=== PATIENT | female | born 1990 | race Caucasian/White ===

== ENCOUNTER 2020-03-21 11:17 | Outpatient (RCR) | payer OTHER, SELFPAY ==
--- NOTE | ~2020-03-21 | US_ITS ---
EXAMINATION: US OB limited, US OB BPP multi gestation EXAM DATE: 03/21/2020 13:03 (accession [id number]), 03/21/2020 13:02 (accession [id number]) INDICATION: Decreased movement/BPP and cervical length. 3rd trimester. TECHNIQUE: Pelvic obstetrical twin gestation transabdominal sonogram was performed by a technologist . There are multiple grayscale and Doppler images available for interpretation. There are no earlie r studies of this gestation for comparison. FINDINGS: The cervical canal measures 4.1 cm. No cervical funneling. There are two living fetuses. FETUS A: Presentation is transverse, more inferiorly located with head to maternal left side and pos terior placenta. cardiac activity and movement are noted. heart rate is 144 beats p er minute (bpm). Biophysical profile performed by the technologist: breathing (30 sec sustained breathing in 30 minutes): 2 out of 2 movement (3 gross body movements in 30 minutes): 2 out of 2 tone (one episode of nrzxxcf-kecadkeba-bggerpt limb movement): 2 out of 2 Amniotic fluid pocket (2 cm): 2 out of 2 Total score: 8 out of 8 FETUS B: Presentation is transverse presentation, head to maternal right side, anteriorly located pl acenta. cardiac activity and movement are noted. heart rate is 135 bpm. Biophysical profile performed by the technologist: breathing (30 sec sustained breathing in 30 minutes): 2 out of 2 movement (3 gross body movements in 30 minutes): 2 out of 2 tone (one episode of hkrfhft-sdhsdxzoo-zhnccbs limb movement): 2 out of 2 Amniotic fluid pocket (2 cm): 2 out of 2 Total score: 8 out of 8 IMPRESSION: 1. Twin fetuses transverse presentations with heart rates of 144 bpm and 135 bpm, respectively. 2. Biophysical profile 8 out of 8 for fetus A and 8 out of 8 for fetus B. 3. Cervical canal length 4.1 cm, no funneling. Reviewed, dictated and finalized at location B. OHISTORIAN IMPRESSION: 1. Twin fetuses transverse presentations with heart rates of 144 bpm and 135 b pm, respectively. 2. Biophysical profile 8 out of 8 for fetus A and 8 out of 8 for fetus B. 3. Cervical canal length 4.1 cm, no funneling.
[2020-03-21 13:22] VITALS: BP 124/78; PULSE 86
[2020-04-21 00:48] LABS: Glucose Point of Care 100 (65-105)
== END 2020-05-16 07:32 | disposition home or self-care (01) ==
LOC: ANHOBOP 11:17
PROVIDERS: PCP Emergency Medicine; Visit Provider Obstetrics & Gynecology
DX: O30.003 Twin pregnancy, unspecified number of placenta and unspecified number of amniotic sacs, third trimester (principal); O36.8132 Decreased fetal movements, third trimester, fetus 2; Z3A.29 29 weeks gestation of pregnancy
CPT/HCPCS: 59025; 76815; 76819; 82948

== ENCOUNTER 2020-04-09 15:31 | Outpatient (CLI) | payer OTHER, SELFPAY ==
[2020-04-09 16:02] VITALS: BP 129/81; PULSE 101
[2020-04-09 16:16] VITALS: BP 116/75; PULSE 88
[2020-04-09 16:26] LABS: Basophils Absolute Auto 0.1 K/mm3 (0.0-0.1); Basophils Percent Auto 0.4 % (0.2-1.2); Eosinophils Absolute Auto 0.2 K/mm3 (0-0.3); Eosinophils Percent Auto 1.1 % (0-4.4); Hematocrit 34.6 % (37.0-47.0); Hemoglobin 11.4 g/dL (12.0-15.0); Immature Granulocyte Percent A 1.5 % (0-0.5); Lymphocytes Absolute Auto 2.09 K/mm3 (0.9-3.2); Lymphocytes Percent Auto 15.5 % (18.3-44.2); Mean Corpuscular HGB Conc 32.9 g/dl (32-36); Mean Corpuscular Hemoglobin 29.5 pg (26-34); Mean Corpuscular Volume 89.4 fl (80-100); Mean Platelet Volume 9.7 fl (7.4-10.4); Monocytes Absolute Auto 1.2 K/mm3 (0.1-0.6); Monocytes Percent Auto 8.5 % (2.6-8.5); Neutrophils Absolute Auto 9.9 K/mm3 (1.3-6.7); Platelet Count Result 216 k/mm3 (150-375); Red Blood Count 3.87 M/mm3 (4.2-5.4); Red Cell Distribution Width 13.6 % (11.5-14.5); White Blood Count 13.5 K/mm3 (4.5-10.0)
[2020-04-09 16:31] VITALS: BP 116/79; PULSE 88
[2020-04-09 16:31] LABS: Add Urine Microscopic? YES; Appearance Urine Clear (Clear); Bacteria Urine Trace /hpf; Bilirubin Urine Negative (Negative); Blood Urine Negative (Negative); Color Urine Yellow (Yellow); Glucose Urine UA Negative (Negative); Ketones Urine Negative (Negative); Leukocyte Esterase Ur Negative LEU/UL (NEGATIVE); Mucus Urine Rare /lpf; Nitrate Urine Negative (Negative); Protein Urine 1+ mg/dL (Negative); RBC Urine 0-2 /hpf (0-2); Specific Grav Ur 1.016 (1.001-1.035); Squamous Epithelial Cell Urine Few /hpf (Few); Urobilinogen Urine Negative mg/dL (<2.0); WBC Urine 0-3 /hpf (0-3)
[2020-04-09 16:35] LABS: Creatinine Urine 90.2 mg/dL; Total Protein Urine Random 17 mg/dL; Ur Ttl Prot Creatinine Ratio 0.19 mg/mg (0-0.20)
[2020-04-09 16:41] LABS: Alanine Aminotransferase 24 U/L (4-35); Albumin Level 3.3 g/dL (3.5-5.1); Alkaline Phosphatase 158 U/L (38-126); Anion Gap 5 mmol/L (8-16); Aspartate Amino Transferase 22 U/L (14-36); Bilirubin,Total 0.3 mg/dL (0.2-1.3); Blood Urea Nitrogen 6 mg/dL (7-17); Calcium 8.9 mg/dL (8.4-10.2); Carbon Dioxide 19 mmol/L (22-30); Chloride 109 mmol/L (98-107); Estimated Glomerular Filt Rate > 60; Glucose 87 mg/dL (65-105); Sodium 133 mmol/L (137-145); Uric Acid 4.7 mg/dL (2.5-7.5)
[2020-04-09 16:45] VITALS: BP 125/80; PULSE 99
--- NOTE | 2020-04-09 16:45 | PC.NURSE ---
pt was sent from maternal medicine due to headache and elevated BP and UTI symptoms. monitor applied and [facility] lab drawn. Called Dr. Goodman with BP, lab result and reactive NST. discharge order received.
[2020-04-09 16:46] VITALS: BP 125/80; PULSE 99
[2020-04-09 16:47] VITALS: BP 125/80; PULSE 99
== END 2020-04-09 16:55 | disposition home or self-care (01) ==
LOC: ANHOBOP 15:34 → ANHOBPP 15:35
PROVIDERS: PCP Emergency Medicine; Referring Provider Obstetrics & Gynecology; Visit Provider Obstetrics & Gynecology
DX: I10 Essential (primary) hypertension (principal)
CPT/HCPCS: 36415; 59025; 80053; 81001; 82570; 84156; 84550; 85025; 87086; 99199

== ENCOUNTER 2020-04-20 23:26 | Outpatient (CLI) | payer OTHER, SELFPAY ==
--- NOTE | 2020-04-20 23:35 | PC.NURSE ---
Pt states she has had decreased movement for past 2 hours and blood pressure per home wrist cuff had diastolic running /110. Twin gestation 33 4/7weeks. Pt also has gestational diabetes.
[2020-04-21 01:56] LABS: Basophils Absolute Auto 0.1 K/mm3 (0.0-0.1); Basophils Percent Auto 0.4 % (0.2-1.2); Eosinophils Absolute Auto 0.2 K/mm3 (0-0.3); Eosinophils Percent Auto 1.4 % (0-4.4); Hematocrit 34.4 % (37.0-47.0); Hemoglobin 11.2 g/dL (12.0-15.0); Immature Granulocyte Absolute 0.21 K/mm3 (0.00-0.031); Immature Granulocyte Percent A 1.5 % (0-0.5); Lymphocytes Absolute Auto 2.37 K/mm3 (0.9-3.2); Lymphocytes Percent Auto 17.1 % (18.3-44.2); Mean Corpuscular HGB Conc 32.6 g/dl (32-36); Mean Corpuscular Hemoglobin 28.9 pg (26-34); Mean Corpuscular Volume 88.7 fl (80-100); Mean Platelet Volume 10.1 fl (7.4-10.4); Monocytes Absolute Auto 1.3 K/mm3 (0.1-0.6); Monocytes Percent Auto 9.2 % (2.6-8.5); Neutrophils Absolute Auto 9.8 K/mm3 (1.3-6.7); Neutrophils Percent Auto 70.4 % (45.5-73.1); Platelet Count Result 227 k/mm3 (150-375); Red Blood Count 3.88 M/mm3 (4.2-5.4); Red Cell Distribution Width 13.8 % (11.5-14.5); White Blood Count 13.9 K/mm3 (4.5-10.0)
[2020-04-21 01:57] LABS: Add Urine Microscopic? NO; Appearance Urine Clear (Clear); Bilirubin Urine Negative (Negative); Blood Urine Negative (Negative); Color Urine Yellow (Yellow); Glucose Urine UA Negative (Negative); Ketones Urine Negative (Negative); Leukocyte Esterase Ur Negative LEU/UL (NEGATIVE); Nitrate Urine Negative (Negative); Protein Urine Negative (Negative); Specific Grav Ur 1.006 (1.001-1.035); Urobilinogen Urine Negative mg/dL (<2.0)
[2020-04-21 02:13] LABS: Alanine Aminotransferase 27 U/L (4-35); Albumin Level 3.5 g/dL (3.5-5.1); Alkaline Phosphatase 194 U/L (38-126); Anion Gap 4 mmol/L (8-16); Aspartate Amino Transferase 28 U/L (14-36); Bilirubin,Total 0.4 mg/dL (0.2-1.3); Blood Urea Nitrogen 6 mg/dL (7-17); Carbon Dioxide 22 mmol/L (22-30); Chloride 107 mmol/L (98-107); Estimated Glomerular Filt Rate > 60; Glucose 83 mg/dL (65-105); Potassium 3.9 mmol/L (3.4-5.0); Sodium 133 mmol/L (137-145); Uric Acid 4.4 mg/dL (2.5-7.5)
[2020-04-21 02:14] LABS: Creatinine Urine 29.2 mg/dL; Total Protein Urine Random 16 mg/dL; Ur Ttl Prot Creatinine Ratio 0.55 mg/mg (0-0.20)
[2020-04-21 02:16] VITALS: BP 137/92; PULSE 88
[2020-04-21 02:31] VITALS: BP 137/85; PULSE 94
[2020-04-21 02:46] VITALS: BP 131/84; PULSE 87
--- NOTE | 2020-04-21 02:50 | PC.NURSE ---
Labs called to Dr. Pool. Will discharge home. Pt to be given [facility] handout and kick counts. Pt to follow up with Dr. Anna this week in office. Pt. to have lab work done with her NST. Pt states her NST this week will be with Maternal medicine so she will get at that time. Pt unsure if she will be able to get them with that appointment. Advised to return here is she is unable to get with M.
--- NOTE | 2020-04-21 03:26 | PC.NURSE ---
0010 Dr. Pool notified on pt arrival and vital sighs. Will observe on monitor for hour.
--- NOTE | 2020-04-21 03:28 | PC.NURSE ---
Addendum entered by Ravinder Jurado RN 04/21/20 03:30: TIME NOTE 0049. Original Note: Dr. Pool called and advised of pt. blood pressure 128/93. [facility] labs ordered.
== END 2020-04-21 03:14 | disposition home or self-care (01) ==
LOC: ANHOBOP 04-21 01:01
PROVIDERS: PCP Emergency Medicine; Visit Provider Obstetrics & Gynecology
DX: O13.9 Gestational [pregnancy-induced] hypertension without significant proteinuria, unspecified trimester (principal); Z3A.00 Weeks of gestation of pregnancy not specified
CPT/HCPCS: 36415; 59025; 80053; 81003; 82570; 84156; 84550; 85025; 87086

== ENCOUNTER 2020-05-14 10:04 | Inpatient (IN) | payer OTHER, SELFPAY ==
[2020-05-14] VITALS (56 sets, daily range): BP systolic 94–137; BP diastolic 53–83; PULSE 69–98; RESP 12–20; TEMP 36.1–36.8; O2SAT 84–100; BMI 47.7
--- NOTE | 2020-05-14 06:51 | PM.IMHP ---
H&P: HPI History of Present Illness Date/Time: 05/14/20 06:51 Chief Complaint: Scheduled section Narrative: Maile Vail is a 30 year old female at 37w1d with dichorionic-diamniotic twin complicated by GDMA1 and obesity presenting for scheduled section. She also has a history of preeclampsia in previous . She has been co-managed with MFM and delivery at 37wks was recommended due to comorbidities. Twin A was noted to be breech on US 1 week ago. Review of Systems Constitutional: Constitutional: Reports no additional constitutional complaints Eyes: Eyes: Reports no additional eye complaints ENT: Reports system reviewed and no additional complaints, except as documented Cardiovascular: Cardiovascular: Reports no additional cardiovascular complaints Respiratory: Respiratory: Reports no additional respiratory complaints Gastrointestinal: Gastrointestinal: Reports no additional gastrointestinal complaints Genitourinary: Genitourinary: Reports no additional female genitourinary complaints Musculoskeletal: Musculoskeletal: Reports no additional musculoskeletal complaints Neurologic: Reports system reviewed and no additional complaints, except as documented Psychiatric: Psychiatric: Reports no additional psychiatric complaints Endocrine: Endocrine: Reports no additional endocrine complaints Hematologic/Lymphatic: Hematologic/Lymphatic: Reports no additional hematologic/lymphatic complaints Allergic/Immunologic: Allergic/Immunologic: Reports no additional allergic/immunologic complaints PMFSH Past Medical History Medical History (Updated 05/14/20 @ 07:02 by Keren Goodman DO) Generalized headaches Surgical History Surgical History (Updated 05/14/20 @ 07:05 by Keren Goodman DO) H/O dilation and curettage History of cholecystectomy Family History Family History (Updated 05/14/20 @ 06:58 by Keren Goodman DO) Grandparent Diabetes mellitus Social History Social History (Updated 05/14/20 @ 07:04 by Keren Goodman DO) Smoking status: Former smoker Substance use type: does not use Meds Home Medications and Allergies Home Medications Medication Instructions Recorded Confirmed Type PNV cmb#95-ferrous fumarate-FA 1 tablet PO DAILY 04/09/20 04/09/20 History [] aspirin 04/09/20 History famotidine 04/09/20 History folic acid 04/09/20 History pyridoxine (vitamin B6) [Vitamin 04/09/20 History B-6] Allergies Allergy/AdvReac Type Severity Reaction Status Date / Time albuterol Allergy Severe THROAT Verified 09/28/09 16:56 SWELLING DIAL SOAP Allergy Unknown RASH Uncoded 06/27/15 12:49 Grass Allergy Unknown Uncoded 06/27/15 12:49 MOSQUITO SPRAY Allergy Unknown RASH Uncoded 06/27/15 12:49 Exam Const: General: cooperative, healthy appearing, comfortable, no acute distress, well developed, alert, awake and Physically active; No acute distress HENMT: Head: normal to inspection and normocephalic Eyes: General: appearance normal, both eyes and all related structures Resp: Effort & Inspection: normal respiratory effort, able to speak in complete sentences, normal respiratory pattern and no audible wheezes Cardio: Rate: regular rate Rhythm: regular rhythm GI: Inspection: normal to inspection GI Palp: No abdominal tenderness, Yes Soft to palpation, No Firmness to palpation present (GI), No Tenderness to palpation present (GI) and No Guarding due to palpation present (GI) : General: Yes deferred Neuro: General: oriented to person, oriented to place, oriented to time and patient oriented x3 Psych: Appearance: grossly normal Mental Status: mental status grossly normal Speech and movement: Normal speech and movement present Affect: normal affect Attitude: cooperative Thought process: Normal thought process present Thought content: Yes Normal thought content present Insight: Good insight present (Psych) Judgement: Good pita
--- NOTE | 2020-05-14 10:04 | LDADM ---
This patient, Maile Vail, was admitted to Labor/Delivery/Recovery 119 on 05/14/20 at 10:04. Plans for labor, pain management and were discussed with patient. Patient/family oriented to hospital policies and general routines including ID bracelet, bed and alarms, visiting hours, pain management, procedures, bathroom and other care routines, personal items, smoking policy, room service/diet and guest tray routines, security routines, and visiting hours. Patient/Family are encouraged to report perceived risks to care and to ask questions if they do not understand what they are told or what they should do. See OBIX for further documentation.
--- NOTE | 2020-05-14 10:52 | P.PNAN_ITS ---
Anes - Initial Pre Proc Eval Procedure: Operation Date: 05/14/20 12:00 Proposed Procedures p Primary Section - Keren Goodman DO Date/Time: 05/14/20 10:52 Surgeon: Keren Goodman DO Pre Op Diagnosis: Scheduled Patient Data Age: 30 Gender: F Height: 1.6 m Weight: 122.25 kg Allergies Allergy/AdvReac Type Severity Reaction Status Date / Time albuterol Allergy Severe THROAT Verified 09/28/09 16:56 SWELLING DIAL SOAP Allergy Unknown RASH Uncoded 06/27/15 12:49 Grass Allergy Unknown Uncoded 06/27/15 12:49 MOSQUITO SPRAY Allergy Unknown RASH Uncoded 06/27/15 12:49 Home Medications Medication Instructions Recorded Confirmed Type PNV cmb#95-ferrous fumarate-FA 1 tablet PO DAILY 04/09/20 04/09/20 History [] aspirin 04/09/20 History famotidine 04/09/20 History folic acid 04/09/20 History pyridoxine (vitamin B6) [Vitamin 04/09/20 History B-6] Patient hx anesthesia problems: none Family hx anesthesia problems: none PMFSH Past Medical History Medical History (Updated 05/14/20 @ 10:52 by Alexander Myers DO) Generalized headaches Gestational diabetes Pre-eclampsia Surgical History Surgical History (Updated 05/14/20 @ 07:05 by Keren Goodman DO) H/O dilation and curettage History of cholecystectomy Family History Family History (Updated 05/14/20 @ 06:58 by Keren Goodman DO) Grandparent Diabetes mellitus Social History Social History (Updated 05/14/20 @ 07:04 by Keren Goodman DO) Smoking status: Former smoker Substance use type: does not use Anes - Eval Final PreProcedure Day of Procedure 05/14/20 10:52 Patient weight: morbidly obese Heart: regular rate and rhythm Lungs: clear to auscultation and normal air movement Airway: Mallampati scale class II Neurological: alert and oriented Last oral intake: >/= 8 hours ASA classification: III Emergent: no Anesthetic plan: proceed Anesthesia type and monitoring: regional spinal and standard monitoring Informed Consent: The patient's anesthetic plan and its attendant risks and benefits were discussed with the patient/family/POA. Questions were solicited a nd answers provided to the satisfaction of the patient/family/POA.
[2020-05-14] MEDS: LACTATED RINGERS 1,000 ML 125 ML IV CONT ×2 (11:11→12:07)
[2020-05-14 11:18] LABS: Basophils Percent Auto 0.3 % (0.2-1.2); Eosinophils Absolute Auto 0.1 K/mm3 (0-0.3); Eosinophils Percent Auto 0.9 % (0-4.4); Hematocrit 34.6 % (37.0-47.0); Hemoglobin 11.5 g/dL (12.0-15.0); Immature Granulocyte Absolute 0.17 K/mm3 (0.00-0.031); Immature Granulocyte Percent A 1.3 % (0-0.5); Lymphocytes Absolute Auto 1.83 K/mm3 (0.9-3.2); Lymphocytes Percent Auto 14.3 % (18.3-44.2); Mean Corpuscular HGB Conc 33.2 g/dl (32-36); Mean Corpuscular Hemoglobin 27.8 pg (26-34); Mean Corpuscular Volume 83.8 fl (80-100); Mean Platelet Volume 10.2 fl (7.4-10.4); Monocytes Percent Auto 7.9 % (2.6-8.5); Neutrophils Absolute Auto 9.6 K/mm3 (1.3-6.7); Neutrophils Percent Auto 75.3 % (45.5-73.1); Platelet Count Result 204 k/mm3 (150-375); Red Blood Count 4.13 M/mm3 (4.2-5.4); Red Cell Distribution Width 14.1 % (11.5-14.5); White Blood Count 12.8 K/mm3 (4.5-10.0)
--- NOTE | 2020-05-14 12:16 | WPDHPUPDATE1 ---
History and Physical Update Update Date/Time: 05/14/20 12:16 History and Physical has been reviewed, including an updated exam of the patient. There are NO changes in the patient's condition. Risks, benefits, and alternatives have been discussed and questions answered. Patient agrees to proceed with procedure.
[2020-05-14 12:36] LABS: Glucose Point of Care 67 (65-105)
--- NOTE | 2020-05-14 13:50 | PM.OP ---
Procedure Note - Brief Procedure Note - Brief Date of procedure: 05/14/20 Pre-op diagnosis: Scheduled Di-Di Twins Gestational DM Post-op diagnosis: same Procedure performed: Primary Low Transverse Section Anesthesia: spinal Surgeon: Keren Goodman DO Estimated blood loss (mL): 960 Drains: No Packing: No Pathology: yes Complications: No immediate complications Condition: stable Disposition: floor
--- NOTE | 2020-05-14 13:51 | PM.OBPRVD ---
OB - Delivery Note Procedure Delivery date: 05/14/20 Procedure: Procedures Operation Date: 05/14/20 12:00 <No data on this case meets the specified criteria> Primary Low Transverse Section Route of delivery: Quantitative Blood Loss (ml): 960 Anesthesia type: Spinal Disposition: floor Narrative: Patient was transferred to the OR table and once adequate anesthesia was established, she was placed in dorsal position with left tilt of the hips. Preoperative antibiotics were administered. A timeout was performed to identify the correct patient and procedure. A pfannenstiel skin incision was made with the scalpel. Subsequent dissection of the subcutaneous layer was performed with the scalpel down to the level of the fascia. Bovie was used to obtain hemostasis from small bleeding vessels. The fascia was nicked at the midline. Fasical incision was extended laterally with Villalobos scissors. Patty clamps were used to tent the superior aspect of the fascia up and the rectus muscles were carefully dissected off the fascia. Attention was then turned to the inferior aspect of the fascia and this was tented up with the Patty clamps and rectus muscles dissected off the fascia. The rectus muscles were divided at the midline and the peritoneum was bluntly entered. Hayder self-retaining retractor was inserted. A low transverse uterine incision was made. This was extended bluntly with cephalad and caudad force. Amniotic sac of fetus A was entered and clear fluid was noted.Fetus noted to be in cephalic positon. Head wad elevated to the level of the hysterotomy and delivered. Along with the rest of the body. No nuchal cord noted. Cord segments and gasses collected. was then handed off the the nursing staff. The amniotic sac of fetus B was ruptured and clear fluid was noted. Fetus was to be in double footling breech position. The feet were were elevated to the hysterotomy and delivered. Followed by the legs. the was then rotated and the right arm was swept out and delivered. The was rotated again and left arm was delivered. The head was flexed and delivered. Cord was clamped and cut and was handed off the nursing staff. Placenta was expressed. Hysterotomy was examined for any extensions and no extensions were noted. This was reapproximated with 0 Vicryl in continuous locking fashion. Good hemostasis noted. Bilateral ovaries and fallopian tubes appeared normal. Paracolic gutter were cleaned of any clots.The fascia was then reapproximated with 0 Vicryl in continuous non-locking fashion. The subcutaneous tissue was reapproximated with 2-0 plain. The skin was reapproximated with 4-0 Monocryl in subcuticular fashion. Sterile bandage was applied. All sponge and instrument counts were correct during and at the end of the procedure. Patient tolerated the procedure was well and was transferred to recovery. Jeff Baby Date of : 05/14/20 Weeks of gestation at delivery: 37 Twins 1: Date of : 05/14/20 Time of : 13:08 Weeks of gestation at delivery: 37 Infant gender: Male Weight (pounds): 5 Weight (ounces): 13 presentation: vertex Placental delivery description: Expressed cord vessel description: 3 Vessels score one minute: 9 score five minutes: 9 2: Date of : 05/14/20 Time of : 13:09 Weeks of gestation at delivery: 37 Infant gender: Female Weight (pounds): 5 Weight (ounces): 11 presentation: breech Placental delivery description: Expressed cord vessel description: 3 Vessels score one minute: 8 score five minutes: 9
[2020-05-14] MEDS: OXYTOCIN 30 UNITS/NS 500 ML 30 UNITS/500 ML BAG 125 UNITS IV CONT (14:30)
[2020-05-14] MEDS: KETOROLAC 30 MG/ML VIAL (*BKC) IV PUSH (15:06)
--- NOTE | 2020-05-14 17:10 | PC.NURSE ---
Addendum entered by Enrrique Zavala RN 05/14/20 17:13: actual time of introductions was 1627 Original Note: PT arrived on unit via stretcher accompanied by fob and twin infants and moved to bed via maxi air without difficulty.PT oriented to room 282 and surrounding area. PT introductions made and plan of care discussed per post op csection, pain managemnet, bottle feeding, daily care activities. PT verbalized understanding of such care.PT given verbal discussion and mom baby guide as resources,
[2020-05-14] MEDS: IBUPROFEN 600 MG TABLET PO (20:10)
[2020-05-14] MEDS: HYDROcodone/acetaminophen (*CRX) 10-325 MG TABLET 1 TAB PO (20:11)
[2020-05-15 04:15] VITALS: BP 126/73; PULSE 73; RESP 17; TEMP 36.8; O2SAT 98
[2020-05-15] MEDS: HYDROcodone/acetaminophen (*CRX) 10-325 MG TABLET 1 TAB PO ×3 (04:33→21:29)
[2020-05-15] MEDS: IBUPROFEN 600 MG TABLET PO ×2 (04:33→12:27)
[2020-05-15 07:40] LABS: Rapid Plasma Reagin Non-Reactive (NonReactive)
[2020-05-15] MEDS: POLYSACCHARIDE IRON COMPLEX 150 MG CAPSULE PO ×2 (07:49→17:13)
[2020-05-15] MEDS: HYDROcodone/acetaminophen (*CRX) 5-325 MG TABLET 1 TAB PO ×2 (07:49→12:28)
[2020-05-15] MEDS: DOCUSATE SODIUM 100 MG CAPSULE PO ×2 (07:49→17:14)
[2020-05-15] MEDS: SIMETHICONE 80 MG TAB.CHEW PO ×3 (07:50→17:14)
[2020-05-15 08:00] VITALS: BP 98/59; PULSE 71; RESP 18; TEMP 36.5
--- NOTE | 2020-05-15 09:28 | WPDANLDPN2 ---
Anes-Prog Note L&D Date/Time: 05/15/20 09:28 Comfortable throughout: section Neuraxial method: spinal Epidural/Spinal procedure site: clean & non-tender Neuro status: Neuro function grossly intact. Cardiovascular status: normal Respiratory status: normal Airway patency: baseline Mental status: baseline Post-Op hydration status: normal Vital Signs: Last Vital Signs Temp 36.8 C 05/15/20 04:15 Pulse 73 05/15/20 04:15 Resp 17 05/15/20 04:15 BP 126/73 05/15/20 04:15 Pulse Ox 98 05/15/20 04:15 Pain score (VAS): 3 I/O: Intake & Output 05/14/20 05/15/20 05/15/20 23:59 07:59 15:59 Intake Total 1000 600 Output Total 1650 Balance 1000 -1050 Post-procedural complaints: none Patient feedback: Patient satisfied with anesthetic care.
--- NOTE | 2020-05-15 09:28 | WPDANLDNPN2 ---
Anes-Prog Note L&D-Neuraxial Date/Time: 05/15/20 09:28 Neuraxial medications: intrathecal PF morphine Opiod-related complaints: none Patient feedback: Patient satisfied with post-operative pain management.
[2020-05-15 11:23] LABS: Basophils Absolute Auto 0.1 K/mm3 (0.0-0.1); Basophils Percent Auto 0.4 % (0.2-1.2); Eosinophils Absolute Auto 0.2 K/mm3 (0-0.3); Eosinophils Percent Auto 1.3 % (0-4.4); Hematocrit 27.1 % (37.0-47.0); Hemoglobin 8.7 g/dL (12.0-15.0); Immature Granulocyte Absolute 0.12 K/mm3 (0.00-0.031); Lymphocytes Absolute Auto 1.71 K/mm3 (0.9-3.2); Lymphocytes Percent Auto 13.6 % (18.3-44.2); Mean Corpuscular HGB Conc 32.1 g/dl (32-36); Mean Corpuscular Hemoglobin 27.4 pg (26-34); Mean Corpuscular Volume 85.5 fl (80-100); Mean Platelet Volume 9.9 fl (7.4-10.4); Monocytes Absolute Auto 1.1 K/mm3 (0.1-0.6); Monocytes Percent Auto 9.1 % (2.6-8.5); Neutrophils Absolute Auto 9.4 K/mm3 (1.3-6.7); Neutrophils Percent Auto 74.6 % (45.5-73.1); Platelet Count Result 182 k/mm3 (150-375); Red Blood Count 3.17 M/mm3 (4.2-5.4); Red Cell Distribution Width 14.3 % (11.5-14.5); White Blood Count 12.5 K/mm3 (4.5-10.0)
[2020-05-15 11:37] VITALS: BP 120/67; PULSE 71; PULSE 84; RESP 18; TEMP 37.2; O2SAT 98
--- NOTE | 2020-05-15 13:28 | P.PNOB_ITS ---
OB - PN: Subj Subjective Date/time seen: 05/15/20 13:28 s/p pLTCS for di-di twins. Doing well today. Pain is controlled. Lochia is moderate. Tolerating diet. Some nausea when getting up and out of bed. Feeling well overall. OB - PN: Obj Data Labs CBC & Chem 7: 05/15/20 11:17 Labs: Laboratory Results - last 24 hr 05/14/20 05/15/20 11:06 11:17 WBC 12.5 H RBC 3.17 L Hgb 8.7 L Hct 27.1 L MCV 85.5 MCH 27.4 MCHC 32.1 RDW 14.3 Plt Count 182 MPV 9.9 Immature Gran % (Auto) 1.0 H Neut % (Auto) 74.6 H Lymph % (Auto) 13.6 L [place] % (Auto) 9.1 H Eos % (Auto) 1.3 Baso % (Auto) 0.4 Lymph # (Auto) 1.71 [place] # (Auto) 1.1 H Eos # (Auto) 0.2 Baso # (Auto) 0.1 Abs Immat Gran (auto) 0.12 H Absolute Neuts (auto) 9.4 H Absolute Nucleated RBC 0.0 Nucleated RBC % 0.0 RPR Non-reactive OB - PN A/P Assessment and Plan (1) Twin , delivered by section, current hospitalization: Code(s): O30.009 - Twin , unspecified number of placenta and unspecified number of amniotic sacs, unspecified trimester Status: Acute Assessment and Plan: Routine post op / care Pain management Ambulate Iron (2) Gestational diabetes: Code(s): O24.419 - Gestational diabetes mellitus in , unspecified control Status: Acute Assessment and Plan: CBG WNL Time Spent With Patient Time: Total time spent is greater than 50% in coordination of care (as documented) at patient's floor/unit and/or counseling patient: Exam Const: General: cooperative, healthy appearing, comfortable and no acute distress Resp: Effort & Inspection: normal respiratory effort, able to speak in complete sentences, normal respiratory pattern, no audible wheezes and not labo red Cardio: Rate: regular rate Rhythm: regular rhythm GI: Inspection: normal to inspection GI Palp: Yes abdominal tenderness (postsurgical tenderness), Yes Soft to palpation, No Guarding due to palpation present (GI) and No Rigid due to palpation Neuro: General: oriented to person, oriented to place, oriented to time and patient oriented x3 Psych: Appearance: grossly normal Mental Status: mental status grossly normal Speech and movement: Normal speech and movement present Affect: normal affect Attitude: cooperative Thought process: Normal thought process present Thought content: Yes Normal thought content present Insight: Good insight present (Psych) Judgement: Good judgement present ( Psych)
[2020-05-15 21:30] VITALS: BP 127/76; PULSE 79; RESP 17; TEMP 36.7
[2020-05-16] MEDS: HYDROcodone/acetaminophen (*CRX) 10-325 MG TABLET 1 TAB PO ×3 (05:05→12:59)
[2020-05-16] MEDS: IBUPROFEN 600 MG TABLET PO ×2 (05:05→12:49)
--- NOTE | 2020-05-16 07:18 | P.PNOB_ITS ---
OB - PN: Subj Subjective Date/time seen: 05/16/20 07:18 Doing well overall, had some pain getting up to bathroom this morning but pain medication is helping. Ambulating. Tolerating diet. Passing flatus. OB - PN: Obj Data Labs CBC & Chem 7: 05/15/20 11:17 Labs: Laboratory Results - last 24 hr 05/14/20 05/15/20 11:06 11:17 WBC 12.5 H RBC 3.17 L Hgb 8.7 L Hct 27.1 L MCV 85.5 MCH 27.4 MCHC 32.1 RDW 14.3 Plt Count 182 MPV 9.9 Immature Gran % (Auto) 1.0 H Neut % (Auto) 74.6 H Lymph % (Auto) 13.6 L [place] % (Auto) 9.1 H Eos % (Auto) 1.3 Baso % (Auto) 0.4 Lymph # (Auto) 1.71 [place] # (Auto) 1.1 H Eos # (Auto) 0.2 Baso # (Auto) 0.1 Abs Immat Gran (auto) 0.12 H Absolute Neuts (auto) 9.4 H Absolute Nucleated RBC 0.0 Nucleated RBC % 0.0 RPR Non-reactive OB - PN A/P Assessment and Plan (1) Twin , delivered by section, current hospitalization: Code(s): O30.009 - Twin , unspecified number of placenta and unspecified number of amniotic sacs, unspecified trimester Status: Acute Assessment and Plan: Routine post op / care Pain management Ambulate Iron Patient desires DC home today (2) Gestational diabetes: Code(s): O24.419 - Gestational diabetes mellitus in , unspecified control Status: Acute Assessment and Plan: CBG WNL Time Spent With Patient Time: Total time spent is greater than 50% in coordination of care (as documented) at patient's floor/unit and/or counseling patient: Exam Const: General: cooperative, healthy appearing, comfortable, no acute distress , well developed, alert, awake and Physically active; No acute distress Orientation/consciousness: oriented to person, oriented to place, oriented to time and patient oriented x3 HENMT: Head: normal to inspection and normocephalic Eyes: General: appearance normal, both eyes and all related structures Resp: Effort & Inspection: normal respiratory effort, able to speak in complete sentences, normal respiratory pattern, no audible wheezes and not labored Cardio: Rate: regular rate Rhythm: regular rhythm GI: Inspection: normal to inspection (incision C/D/I) GI Palp: Yes abdominal tenderness (postsurgical tenderness) and Yes Soft to palpation Neuro: General: oriented to person, oriented to place, oriented to time and patient oriented x3 Psych: Appearance: grossly normal Mental Status: mental status grossly normal Speech and movement: Normal speech and movement present Affect: nor mal affect Attitude: cooperative Thought process: Normal thought process present Insight: Good insight present (Psych) Judgement: Good judgement present (Psych)
--- NOTE | 2020-05-16 07:20 | PM.OBDSVD ---
DS: Admitting Diagnosis Admitting Diagnosis Admitting Diagnosis: Di-Di Twins Gestational Diabetes, diet controlled DS: Discharge Diagnosis Discharge Diagnosis (1) Twin , delivered by section, current hospitalization: Code(s): O30.009 - Twin , unspecified number of placenta and unspecified number of amniotic sacs, unspecified trimester Status: Acute Assessment and Plan: Routine post op / care Pain management Ambulate [place] Patient desires DC home today (2) Gestational diabetes: Code(s): O24.419 - Gestational diabetes mellitus in , unspecified control Status: Acute Assessment and Plan: CBG WNL OB - DS: Summary OB Procedures : None OB Procedures Intrapartum: (low transverse) OB Procedures: : None Peripartum Data Infant Delivery Method: Section Procedures: Procedures Operation Date: 05/14/20 12:00 Actual Procedures Side Surgeon p Primary Section Not Applicable Keren Goodman DO [place] 1: Gender: Male 2: Gender: Female Time Spent with Patient Time attestation: Total time spent providing and/or coordinating discharge services: Exam Const: General: cooperative, healthy appearing, comfortable, no acute distress, well developed, alert, awake and Physically active; No acute distress Orientation/consciousness: oriented to person, oriented to place, oriented to time and patient oriented x3 HENMT: Head: normal to inspection and normocephalic Eyes: General: appearance normal, both eyes and all related structures Resp: Effort & Inspection: normal respiratory effort, able to speak in complete sentences, normal respiratory pattern, no audible wheezes and not labored Cardio: Rate: regular rate Rhythm: regular rhythm GI: Inspection: normal to inspection (incision C/D/I) : General: Yes deferred Neuro: General: oriented to person, oriented to place, oriented to time and patient oriented x3 Psych: Appearance: grossly normal Mental Status: mental status grossly normal Speech and movement: Normal speech and movement present Affect: normal affect Attitude: cooperative Thought process: Normal thought process present Insight: Good insight present (Psych) Judgement: Good judgement present (Psych) DS: Data Data Completed and Pending Pending studies at discharge: Pending at discharge 05/14/20 13:10 Surgical [PTH] Routine Surgical [PTH] Routine Labs on day of discharge: Labs from last 24 hours 05/15/20 05/14/20 11:17 11:06 WBC 12.5 H RBC 3.17 L Hgb 8.7 L Hct 27.1 L MCV 85.5 MCH 27.4 MCHC 32.1 RDW 14.3 Plt Count 182 MPV 9.9 Immature Gran % (Auto) 1.0 H Neut % (Auto) 74.6 H Lymph % (Auto) 13.6 L [place] % (Auto) 9.1 H Eos % (Auto) 1.3 Baso % (Auto) 0.4 Lymph # (Auto) 1.71 [place] # (Auto) 1.1 H Eos # (Auto) 0.2 Baso # (Auto) 0.1 Abs Immat Gran (auto) 0.12 H Absolute Neuts (auto) 9.4 H Absolute Nucleated RBC 0.0 Nucleated RBC % 0.0 RPR Non-reactive Discharge Plan Discharge Attending physician on discharge: Keren Goodman Discharging Clinician: Keren Goodman Patient Disposition: Home, Self-Care Activity: may shower, no straining, as tolerated and pelvic rest Diet: regular Patient Instructions: Antibiotic Form, How to Stop Smoking (DC) Stand Alone Forms: General Discharge Information Follow-up/Referrals: Keren Goodman DO [Physician] - Discharge Medications: New polysaccharide iron complex 150 mg iron Capsule 150 mg PO BIDWM Qty: 90 RF: 0 docusate sodium 100 mg Capsule 100 mg PO BID Qty: 60 RF: 0 ibuprofen 600 mg Tablet 600 mg PO Q6H PRN (Reason: Cramping) Qty: 90 RF: 0 hydrocodone-acetaminophen 7.5-325 mg tablet 1 tablet PO Q6H PRN (Reason: pain) Qty: 14 RF: 0 Continued famotidine 20 mg tablet RF: 0 folic acid 1 mg tablet RF:
[2020-05-16 08:00] VITALS: BP 108/64; PULSE 71; RESP 18; TEMP 36.6
--- NOTE | 2020-05-16 08:00 | PC.NURSE ---
Patient was given the opportunity to view the discharge video Mother & Baby Care, The First Two Weeks and to ask questions. Patient declined viewing the video and has been given the mother/baby guide for home reference.
[2020-05-16] MEDS: DOCUSATE SODIUM 100 MG CAPSULE PO (08:24)
[2020-05-16] MEDS: TETANUS,DIPHTHERIA,AC PERTUSSIS ADULT (0.5 ML) BOOSTRIX IM (08:24)
[2020-05-16] MEDS: SIMETHICONE 80 MG TAB.CHEW PO (08:24)
[2020-05-16] MEDS: POLYSACCHARIDE IRON COMPLEX 150 MG CAPSULE PO (08:24)
--- NOTE | 2020-05-16 11:16 | PC.NURSE ---
Self care and infant care for twins discharge instructions given. Parents verbalized understanding. No questions or concerns voiced.
[2020-05-17 10:47] VITALS: BP 123/76; PULSE 84; RESP 20; TEMP 36.8; O2SAT 100
== END 2020-05-16 13:57 | disposition home or self-care (01) | DRG 540 ==
LOC: ANHLDR 10:11 → ANHOB2 16:31
PROVIDERS: Admitting Provider Obstetrics & Gynecology; PCP Emergency Medicine; Visit Provider Obstetrics & Gynecology
PROC: 10D00Z1 Extraction of Products of Conception, Low, Open Approach (ICD-10-PCS; CPT 59514; principal; 2020-05-14 12:00)
DX: O30.043 Twin pregnancy, dichorionic/diamniotic, third trimester (principal); O24.420 Gestational diabetes mellitus in childbirth, diet controlled; O32.8XX2 Maternal care for other malpresentation of fetus, fetus 2; Z3A.37 37 weeks gestation of pregnancy; Z37.2 Twins, both liveborn
CPT/HCPCS: 36415; 82948; 85025; 86592; 86850; 86900; 86901; 88307; 90715; A9270; J0131; J1885; J2274; J2405; J2590; J7120

== ENCOUNTER 2024-02-11 10:31 | Emergency (ER) | payer OTHER, SELFPAY ==
--- NOTE | ~2024-02-11 | XR_ITS ---
EXAMINATION: XR chest 2V DATE: 02/11/2024 11:24 INDICATION: Productive cough TECHNIQUE: PA and lateral views of the chest were obtained. COMPARISON: None FINDINGS: The lungs are clear with no focal airspace opacities, pulmonary edema, pleural effusion or pneumothor ax. The cardiomediastinal silhouette is normal. Visualized bones and soft tissues are unremarkable. IMPRESSION: 1. No acute cardiopulmonary disease. Reviewed, dictated and finalized at location B. [facility]
--- NOTE | 2024-02-11 10:52 | ED_ITS ---
HPI - URI/Sore Throat General Chief Complaint: Upper Respiratory Infection Stated Complaint: chest hurts,cough,Hx childhood asthma Time Seen by Provider: 02/11/24 10:52 Source: patient, RN notes reviewed and old records reviewed Mode of arrival: ambulatory Limitations: no limitations History of Present Illness HPI Narrative: Patient presents with 4 day history subjective fever, cough, sore throat, runny nose, headache. Reports right now headache is the worst of her symptoms. States cough is sometimes productive. She is concerned, sister was recently treated for pneumonia and patient has many children, says she has ?no idea what I have been exposed to?. She has been taking [id number] medications with moderate relief. She is in no distress at this time, including respiratory distress. Related Data Home Medications Medication Instructions Recorded Confirmed bupropion HCl (smoking deter) 150 150 mg PO DAILY 02/11/24 02/11/24 mg tablet,12 hr sustained-release(smoking deterrent) escitalopram oxalate 20 mg tablet 20 mg PO DAILY 02/11/24 02/11/24 pantoprazole 40 mg tablet,delayed 40 mg PO DAILY 02/11/24 02/11/24 release Allergies Allergy/AdvReac Type Severity Reaction Status Date / Time albuterol Allergy Severe THROAT Verified 02/11/24 10:44 SWELLING DIAL SOAP Allergy Intermediate RASH Uncoded 02/11/24 10:44 MOSQUITO SPRAY Allergy Intermediate RASH Uncoded 02/11/24 10:44 Grass Allergy Unknown Unknown Uncoded 02/11/24 10:44 Review of Systems Review of Systems: All systems reviewed & are unremarkable except as noted in HPI and below Constitutional: Constitutional: Reports as per HPI and Reports no additional constitutional complaints ENT: Reports system reviewed and no additional complaints, except as documented Cardiovascular: Cardiovascular: Reports no additional cardiovascular complaints Respiratory: Respiratory: Reports no additional respiratory complaints Gastrointestinal: Gastrointestinal: Reports no additional gastrointestinal complaints PMFSH Past Medical History Medical History (Updated 02/11/24 @ 11:41 by Lucero Samuels APRN) Generalized headaches Gestational diabetes Pre-eclampsia Surgical History Surgical History (Updated 05/14/20 @ 07:05 by Keren Goodman DO) H/O dilation and curettage History of cholecystectomy Family History Family History (Updated 05/14/20 @ 06:58 by Keren Goodman DO) Grandparent Diabetes mellitus Social History Social History (Updated 05/14/20 @ 07:04 by Keren Goodman DO) Smoking packs per day: 0.5 Smoking cigarettes per day: 10.0 Smoking status: Current every day smoker Tobacco type: cigarettes Second hand tobacco smoke exposure: Yes Substance use: current Substance use type: does not use Gender identity (if verbalized by the patient): Female Spiritual care concerns: No Comments At the time of my signature, I reviewed and agree with the nursing past medical, surgical, social, and family history. There is no relevant family history pertinent to the patient complaint. Exam Const: General: cooperative, no acute distress, alert and awake Orientation/consciousness: oriented to person, oriented to place and oriented to time HENMT: Head: normal to inspection Resp: Effort & Inspection: normal respiratory effort and able to speak in complete sentences Auscultation: clear to auscultation bilaterally, no crackles, no rales, no rhonchi and no wheezes Cardio: Palpation: normal PMI Rate: regular rate Rhythm: regular rhythm Heart sounds: S1 normal heart sound present and S2 normal heart sound present Neuro: General: oriented to person, oriented to place and oriented to time Cranial nerves: Yes CN's II-XII intact bilaterally Psych: Appearance: grossly normal Thought process: Normal thought process present Insight: Good insight present (Psych) Judgement: Good judgement present (Psych) Course Course Level of Care: Express Care Visit Vital Signs Vital signs: Vital Signs Temperature 97.9 F 02/11/24 10:53 Pulse Rate 116 H 02/11/24 10:53 Respiratory Rate 15 02/11/24 10:53 Blood Pressure 137/83 02/11/24 10:53 Pulse Oximetry 97 02/11/24 10:53 Oxygen Delivery Room Air 02/11/24 10:53 Temperature 97.9 F 02/11/24 10:58 Pulse Rate 116 H 02/11/24 10:58 Respiratory Rate 15 02/11/24 10:58 Blood Pressure 137/83 02/11/24 10:58 Pulse Oximetry 97 02/11/24 10:58 Oxygen Delivery Room Air 02/11/24 10:58 Reviewed MDM - URI/Sore Throat MDM Narrative Medical decision making narrative: patient nontoxic appearing, no distress. Negative diagnostics today. Follow with primary care provider, emergency department for new or worse symptoms. Supportive care measures discussed. Discharge instructions reviewed with patient, as well as provided in writing per nursing staff. The instructions also include specific and strict return/GO TO THE ER as well as f/u information. All questions have been answered, and the patient deny any further questions with discharge and discharge plan. Some parts of this dictation were generated by voice recognition software and may contain typographical and/or grammatical inaccuracies. Differential Diagnosis Differential diagnosis: Likely upper respiratory infection, otitis media, sinusitis, bronchitis, influenza and pharyngitis Medical Records Attestation: I reviewed the patient's medical records. Lab Data Attestation: I reviewed the patient's lab results. Labs: Lab Results 02/11/24 Range/Units 10:50 POC Influenza A Ag Negative (Negative) POC Influenza B Ag Negative (Negative) POC SARS CoV-2 Ag Negative (Negative) POC Grp A Strep Screen Negative (Negative) Imaging Data My impression: negative Radiologist's impression: [address] [address] [place] [address] XRay Report Signed Patient: Maile Vali : 1990 MR#: [id number] Age: 33 Acct:[id number] Loc: [facility] ADM Date: 02/11/24Attending Dr: Ordering Physician: Lucero Samuels FNP Date of Service: 02/11/24 Procedure(s): XR chest 2V Accession Number(s): [id number] cc: Lucero Samuels FNP; UNKNOWN,DOCTOR~ EXAMINATION: XR chest 2V DATE: 02/11/2024 11:24 INDICATION: Productive cough TECHNIQUE: PA and lateral views of the chest were obtained. COMPARISON: None FINDINGS: The lungs are clear with no focal airspace opacities, pulmonary edema, pleural effusion or pneumothorax. The cardiomediastinal silhouette is normal. Visualized bones and soft tissues are unremarkable. IMPRESSION: 1. No acute cardiopulmonary disease. Reviewed, dictated and finalized at location B. 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 Emergency department for new or worse symptoms Patient Language: Wolof Prescriptions: No Action pantoprazole 40 mg tablet,delayed release (DR/EC) 40 mg PO DAILY escitalopram oxalate 20 mg tablet 20 mg PO DAILY bupropion HCl (smoking deter) 150 mg tablet extended release 12 hr 150 mg PO DAILY Follow-up/Referrals: UNKNOWN,DOCTOR [Primary Care Provider] - Stand Alone Forms: Work/School Release IP Time of Disposition: 11:43
[2024-02-11 10:53] VITALS: BP 137/83; PULSE 116; RESP 15; TEMP 36.6; O2SAT 97
[2024-02-11 10:58] VITALS: BP 137/83; PULSE 116; RESP 15; TEMP 36.6; O2SAT 97
[2024-02-11 12:05] LABS: EDCOVIDSCREEN Negative (Negative); EDINFLUASCREEN Negative (Negative); EDINFLUBSCREEN Negative (Negative); EDSTREPNEGPOS1 Negative (Negative)
== END 2024-02-11 11:46 | disposition home or self-care (01) ==
PROVIDERS: Emergency Provider Nurse Practitioner Family
DX: J06.9 Acute upper respiratory infection, unspecified (principal); F17.210 Nicotine dependence, cigarettes, uncomplicated; Z20.822 Contact with and (suspected) exposure to COVID-19
CPT/HCPCS: 71046; 87081; 87426; 87804; 87880; 99213; G0463

== ENCOUNTER 2024-02-20 12:51 | Emergency (ER) | payer OTHER, SELFPAY ==
[2024-02-20 12:55] VITALS: PULSE 100; RESP 19; O2SAT 98
[2024-02-20 13:02] VITALS: BP 124/86; PULSE 99; RESP 16; TEMP 36.9; O2SAT 95
== END 2024-02-20 13:05 | disposition left against medical advice (07) ==
PROVIDERS: Emergency Provider Internal Medicine Hematology & Oncology
DX: Z53.21 Procedure and treatment not carried out due to patient leaving prior to being seen by health care provider (principal)
CPT/HCPCS: 99199